=== PATIENT | male | born 1990 | race Caucasian/White ===

== ENCOUNTER 2023-12-24 09:04 | Emergency (ER) | payer BC ==
[~2023-12-24] VITALS: Ht 175.3 cm; Wt 91.6 kg
[2023-12-24 09:05] VITALS: BP_SYST 141; PULSE 104; RESP 19; TEMP 97.7; O2SAT 98
[2023-12-24 10:09] LABS: COVID19 ANTIGEN SOFIA FIA NEGATIVE (NEGATIVE)
[2023-12-24 10:29] LABS: INFLUENZA TYPE A Negative (NEGATIVE); INFLUENZA TYPE B NEGATIVE (NEGATIVE)
[2023-12-24] MEDS ORDERED: ALBMDI INH (11:16)
[2023-12-24] MEDS ORDERED: BENZ150C10 PO (11:16)
[2023-12-24] MEDS ORDERED: BENZ1LOZ73 PO (11:16)
[2023-12-24] MEDS ORDERED: DEXAMETHASONE SOD PHOSPHATE 10 MG/ML VIAL PO ONE (11:30)
[2023-12-24 11:32] VITALS: BP_SYST 145; PULSE 99; RESP 16; TEMP 97.6; O2SAT 98
== END 2023-12-24 11:30 | disposition home or self-care (01) ==
LOC: SED 09:04
DX: J20.8 Acute bronchitis due to other specified organisms (principal); R05.9 Cough, unspecified; R07.0 Pain in throat; I10 Essential (primary) hypertension; Z79.899 Other long term (current) drug therapy; Z20.822 Contact with and (suspected) exposure to COVID-19
CPT/HCPCS: 99284; 71045; 87426; 36415; 87804 ×2; J1100